=== PATIENT | female | born 1945 | race Caucasian/White ===

== ENCOUNTER 2017-10-18 04:26 | Inpatient (IN) | payer MEDICARE ==
[2017-10-18] MEDS ORDERED: Potassium Chloride 20 MEQ TAB ONE (05:17)
[2017-10-18 05:31] LABS: Lactic Acid - Sepsis 1.1 mmol/L (0.5-2.2)
[2017-10-18 05:35] LABS: CK (CPK) 52 U/L (29-168); Lipase 19 U/L (8-78); Troponin I Less than 0.010 ng/mL (< 0.028)
[2017-10-18] MEDS ORDERED: D5 1/2 NS w/20 mEq KCL 1,000 ML IV SCH ×2 (06:45→09:30)
--- NOTE | 2017-10-18 07:55 | ULT ---
PRELIMINARY REPORT/[facility]/EMERGENCY AFTER HOURS PROCEDURE: EXAM: US Duplex Right Lower Extremity Veins CLINICAL HISTORY: 72 years old, female; Signs and symptoms; Swelling of limb; Lower extremity, right; Additional info: Pt is obese, diagnosed with cellulitis. Rt lower leg red/warm/swollen TECHNIQUE: Real-time ultrasound scan of the veins of the right lower extremity with color Doppler flow, spectral waveform analysis and compression. COMPARISON: No relevant prior studies available. FINDINGS: Deep veins: No acute findings. No DVT in the visualized common femoral, femoral, proximal deep femora l or popliteal veins. The veins demonstrate normal color flow, are normally compressible, with normal phasic flow and/or augmentation response. Superficial veins: No acute findings. No thrombus in the visualized great saphenous vein. Soft tissues: No acute findings. No popliteal cyst. IMPRESSION: Normal right lower extremity duplex venous ultrasound. Thank you for allowing us to participate in the care of your patient. Dictated and Authenticated by: Yazan Maradiaga MD 10/18/2017 5:41 AM Central Time ([place] & [place]) FINAL REPORT VENOUS DOPPLER ULTRASOUND OF THE RIGHT LOWER EXTREMITY: I agree with the preliminary report given by Dr. Yazan Maradiaga of [facility]. POS: [facility]
--- NOTE | 2017-10-18 08:33 | CT ---
PRELIMINARY REPORT/[facility]/EMERGENCY AFTER HOURS PROCEDURE: EXAM: CT Angiography Chest With Intravenous Contrast CLINICAL HISTORY: 72 years old, female; Pain; Chest pain; Type not specified; Patient HX: R/O pe; Additional info: Pt i s obese, diagnosed with cellulitis. Rt lower leg red/warm/swollen TECHNIQUE: Axial computed tomographic angiography images of the chest with intravenous contrast using pulmonary embolism protocol. CONTRAST: 100 mL of ISOVUE administered intravenously. COMPARISON: No relevant prior studies available. FINDINGS: Pulmonary arteries: No acute findings. No pulmonary embolism. Aorta: 4.2 cm ascending thoracic aortic aneurysm without leak or dissection. Lungs: No acute findings. No mass. No consolidation. Pleural space: No acute findings. No significant effusion. No pneumothorax. Heart: Moderate cardiomegaly. No significant pericardial effusion. No evidence of RV dysfunction. Bones/joints: Chronic degenerative spinal changes without acute fracture or dislocation. Soft tissues: No acute findings. Lymph nodes: No acute findings. No enlarged lymph nodes. IMPRESSION: No pulmonary embolism. 4.2 cm ascending thoracic aortic aneurysm without leak or dissection. Moderate cardiomegaly. No mass. No consolidation. Thank you for allowing us to participate in the care of your patient. Dictated and Authenticated by: Yazan Maradiaga MD 10/18/2017 6:08 AM Central Time ([place] & [place]) FINAL REPORT EMERGENCY/AFTER HOURS EXAMINATION CT ANGIO CHEST PERFORMED WITH INTRAVENOUS CONTRAST ENHANCEMENT WITH 3D RECONSTRUCTIONS: HISTORY: Chest pain. FINDINGS: The lungs are clear of any infiltrative process. There are no pulmonary nodules or pleural effusions identified. The ascending thoracic aorta measures approximately 4.1 cm. The descending thoracic aorta is normal in caliber. There is good pulmonary arterial opacification without CT evidence for pulmonary embolus. The visualized liver parenchyma is normal. IMPRESSION: 1. No CT evidence for pulmonary embolus. 2. The ascending aorta measures approximately 4.1 cm in anterior-posterior dimension. This report is in agreement with the temporary report issued by [facility]. POS: [facility]
[2017-10-18] MEDS ORDERED: Ondansetron ODT 4 MG TAB SL PRN (09:24)
[2017-10-18] MEDS ORDERED: Ondansetron HCl/PF 4 MG/2 ML Vial IVP PRN ×2 (09:24→10:47)
[2017-10-18 10:05] VITALS: BMI 41.3
[2017-10-18] MEDS ORDERED: HYDROcodone/Acetaminophen 5/325 mg Tablet PO PRN (10:47)
[2017-10-18] MEDS ORDERED: Nitroglycerin 0.4 MG TAB (25 Tab Bottle) SL PRN (10:47)
[2017-10-18] MEDS ORDERED: Piperacillin/Tazobactam 3.375 GM in Sodium Chloride 0.9% 100 ML IVPB SCH (11:00)
[2017-10-18 11:47] LABS: Troponin I 0.013 ng/mL (< 0.028)
[2017-10-18 11:48] LABS: Anion Gap 10 mmol/L (10-20); Calcium 8.4 mg/dL (7.8-10.44); Carbon Dioxide 25 mmol/L (23-31); Chloride 107 mmol/L (98-107)
[2017-10-18 11:58] LABS: Calc. Creatinine Clearance 100 mL/min (70-130); Estimated GFR-MDRD 66
[2017-10-18] MEDS: Piperacillin/Tazobactam 3.375 GM in Sodium Chloride 0.9% 100 ML IVPB SCH ×2 (11:58→20:07)
[2017-10-18 11:59] LABS: BUN (Urea Nitrogen) 19 mg/dL (9.8-20.1)
--- NOTE | 2017-10-18 12:39 | HP ---
DATE OF ADMISSION: 10/18/2017 PRIMARY CARE PHYSICIAN: Yohana leslie. REASON FOR ADMISSION: Cellulitis, atrial fibrillation. HISTORY OF PRESENT ILLNESS: Ms. Ceci Polk is a 72-year-old female with a history of hypertensio n, questionable atrial fibrillation, who presents to the emergency room after having a fever at home. According to family members, the patient had a fever up to 103.2. They stated that intermittently she became altered. [facility], where she was evaluated. There is suspicion for a DVT in her right lower extremity and was given 1 dose of Lovenox. She was t hen transferred to [place] for higher level of care. The patient states that she has noted erythe ma in her legs for the last 3 months. She cannot say exactly where it began but it has been spreadin g. There is no pain on palpation, it is erythematous and warm. She has not noticed any discharge. She denies any chest pain or shortness of breath. She was given intravenous antibiotics in the emerg ency room and subsequently being admitted to the telemetry floor. The patient states she has had a h istory of atrial fibrillation in the past, but cannot recall any treatment course, cannot recall bein g on any blood thinners or any rate controlling agents. She is currently resting comfortably. PAST MEDICAL HISTORY: 1. Hypertension. 2. Question of atrial fibrillation. PAST SURGICAL HISTORY: Hysterectomy. CODE STATUS: She is FULL CODE. SOCIAL HISTORY: The patient any denies alcohol use, tobacco, or illicit drug use. MEDICATIONS: Aspirin 81 mg p.o. daily. She reports noncompliance with her antihypertensive medicati ons. ALLERGIES: AZITHROMYCIN, CLINDAMYCIN, LEVAQUIN, PREDNISONE, and SULFA. FAMILY HISTORY: Reviewed and noncontributory. REVIEW OF SYSTEM: The following complete review of systems was negative, unless otherwise mentioned in the HPI or below: Constitutional: Weight loss or gain, sense of well-being, ability to conduct usual activities, exerc ise tolerance. Skin/Breast: Rash, itching, changes in hair growth or loss, nail changes, breast lumps, tenderness, swelling, nipple discharge. Eyes: Vision, double vision, tearing, blind spots, pain. ENT/Mouth: Headaches (location, time of onset, duration, precipitating factors), vertigo, lightheade dness, injury. Vision, double vision, tearing, blind spots, pain, nose bleeding, colds, obstruction, discharge, dental difficulties, gingival bleeding, dentures, neck stiffness, pain, tenderness, masses in thyroid or other areas Cardiovascular: Precordial pain, substernal distress, palpitations, syncope, dyspnea on exertion, or thopnea, nocturnal paroxysmal dyspnea, edema, cyanosis, hypertension, heart murmurs, varicosities, ph lebitis, claudication. Respiratory: Pain, shortness of breath, wheezing, stridor, cough, hemoptysis, fever or night sweats Gastrointestinal: Poor appetite, dysphagia, indigestion, abdominal pain, heartburn, eructation, naus ea, vomiting, hematemesis, jaundice, constipation, or diarrhea, abnormal stools (diana-colored, tarry, bloody, greasy, foul smelling), flatulence, hemorrhoids, recent changes in bowel habits. Genitourinary: Urgency, frequency, dysuria, nocturia, hematuria, polyuria, oliguria, unusual (or chantal nge in) color of urine, stones, hesitancy, change in size of stream, dribbling, acute retention or in continence, libido, potency. Musculoskeletal: Pain, swelling, redness or heat of muscles or joints, limitation, of motion, muscul ar weakness, atrophy, cramps. Neurologic/Psychiatric: Convulsions, paralyses, tremor, incoordination, paresthesias, difficulties w ith memory of speech, sensory or motor disturbances, or muscular coordination (ataxia, tremor), emoti onal problems, anxiety, depression, previous psychiatric care, unusual perceptions, hallucinations. Allergy/Immunologic: Skin rash, anemia, bleeding tendency, polydipsia, polyuria, intolerance to heat or cold. PHYSICAL EXAMINATION: VITAL SIGNS: Blood pressure is 167/85, temperature 97.9, pulse is 63, O2 saturation is 97% on 2 lite rs nasal cannula, respirations are 18. GENERAL: She is in no acute distress, nontoxic appearing. HEENT: Eyes, pupils are round and reactive to light and accommodation. No scleral icterus, no pale conjunctivae. ENT/MOUTH: Moist oral mucosa. RESPIRATORY: Equal chest wall expansion. No wheezes, rhonchi, or rales. CARDIOVASCULAR: S1 and S2 present. Irregular rate and rhythm. No murmurs, gallops or rubs. GASTROINTESTINAL: Soft, nontender, nondistended. Bowel sounds present in all 4 quadrants. MUSCULOSKELETAL: Good range of motion in all 4 extremities. No clubbing, no cyanosis. LYMPHATIC: No swollen or painful cervical or axillary lymph nodes. NEUROLOGIC: No ptosis, no facial sensation or jaw protrusion, no focal deficits. PSYCHIATRIC: She is awake, alert to time, place, person, answers questions appropriately. SKIN: She has erythema up into her mid-calf in her right lower extremity. LABORATORY AND X-RAY FINDINGS: [facility] and reviewed by me show WBC of 13.5, hemoglobin 13.8, hematocrit 40.6, and platelet count 239,000. Sodium is 141, potassium 2.8, ch loride is 103, carbon dioxide 24, anion gap 17, BUN 20, creatinine 0.92, glucose 123. AST and ALT 16 and 13. BNP is 541.3. TSH is 0.87. Urine shows 7-10 WBCs, small bilirubin, moderate blood, tropon ins less than 0.01. Ulcer on the right lower extremity reveals a normal right lower extremity venous ultrasound, there is no evidence of DVT. CT of the chest and thorax revealed no CT evidence for pulmonary embolus and the ascending aorta radha uring 4.1 cm in anterior posterior dimension. There is no evidence of dissection or leak. EKG revealed atrial fibrillation at a rate of 77 beats per minute. ASSESSMENT AND PLAN: Ms. Ceci Polk is a 72-year-old female with a history of hypertension and p ossible atrial fibrillation, who presents to the emergency room complaining of fevers. 1. Fever, most likely secondary to underlying cellulitis of her right lower extremity. She will be admitted to the telemetry floor. Blood cultures have been ordered. The patient will be empirically started on vancomycin and Zosyn. We will adjust antibiotic therapy according to blood cultures. 2. Atrial fibrillation. Currently, the patient is rate controlled. However, given her elevated CHANTAL DS2 score, start patient on full dose anticoagulation. We will check an echocardiogram. We will als o consult Cardiology for further recommendations. 3. Hypertension. We will start the patient on hydralazine at this time; however, we will defer to b e on hydrochlorothiazide, but we will need to ensure her potassium within normal limits for doing thi s. 4. Hypokalemia. We will recheck stat and replete accordingly. 5. Cardiac diet. 6. P.r.n. order set. 7. FULL CODE. I have explained all this to the patient and the family at bedside. They are agreeable to the plan o f treatment. All questions have been answered. The patient's further hospital course will be dictat ed by her clinical course while here.
[2017-10-18] MEDS ORDERED: ISOVUE-370 76%-LOCM 1 ML ONE (13:34)
--- NOTE | 2017-10-18 13:48 | CON ---
DATE OF CONSULTATION: 10/18/2017 HISTORY OF PRESENT ILLNESS: The patient is a pleasant 72-year-old woman who was noted to be in irregular heart rhythm and was admitted with a swollen right foot. The patient states previously she has been told she has atrial fibrillation. She also has a history of hypertension. The patient has been noncompliant and has not seen a physician for several years. The patient recently noted that her foot was swollen and erythematous. The patient presented to the emergency room with a markedly swollen right foot, fevers and chills. The patient denied having any palpitations. The patient denies having any chest discomfort. PAST MEDICAL HISTORY: : 1. History of hypertension. 2. History of atrial fibrillation. PAST SURGICAL HISTORY: Hysterectomy and hernia surgery. SOCIAL HISTORY: She is a nonsmoker. ALLERGIES: AZITHROMYCIN, BACTRIM, CLINDAMYCIN, LEVAQUIN, and PREDNISONE. FAMILY HISTORY: No strong family history of heart disease. REVIEW OF SYSTEMS: Ten-point system otherwise unremarkable. No history of easy bruising or bleeding, bright red blood per rectum. PHYSICAL EXAMINAITON: GENERAL: Obese woman, in no acute distress. VITAL SIGNS: Blood pressure was 133/83, heart rate was 70 and irregular. NECK: No jugular venous distention, no carotid bruits. LUNGS: Clear to auscultation. HEART: Irregular rate and rhythm, normal S1, S2, no murmurs. ABDOMEN: Mildly distended. EXTREMITIES: Showed markedly swollen right lower extremities with erythema. NEUROLOGIC: Nonfocal. PSYCHIATRIC: Mood is appropriate. VASCULAR: Radial pulses 2+. LABORATORY DATA AND IMAGING: Sodium 139, potassium 3.2, chloride 107, bicarbonate 25, BUN 19, creatinine 0.85, glucose 124, Troponin was 0.013. TSH is 0.8725. EKG revealed atrial fibrillation with a rate of approximately 70 and a nonspecific T-wave abnormality. IMPRESSION: 1. Atrial fibrillation, rate controlled. 2. Cellulitis. 3. Hypertension. 4. Obesity. 5. Noncompliance. This patient presents with cellulitis. She has rate controlled atrial fibrillation without any medication. From a cardiac standpoint, we will place her on Eliquis. We will check the patient's echocardiogram. We will follow this patient with you throughout her hospitalization. [place]
[2017-10-18] MEDS: Vancomycin HCl 1 GM in Premix Bag 1 BAG IVPB SCH (14:42)
[2017-10-18] MEDS: hydrALAZINE 25 MG TAB PO SCH (20:09)
[2017-10-18] MEDS ORDERED: Enoxaparin Sodium 100 MG/ML SYRINGE SC SCH (21:00)
[2017-10-18] MEDS ORDERED: Vancomycin HCl 1 GM in Premix Bag 1 BAG IVPB SCH (21:00)
[2017-10-19] MEDS: Vancomycin HCl 1 GM in Premix Bag 1 BAG IVPB SCH ×2 (02:51→15:29)
[2017-10-19] MEDS: Piperacillin/Tazobactam 3.375 GM in Sodium Chloride 0.9% 100 ML IVPB SCH ×3 (03:39→18:29)
[2017-10-19 04:58] LABS: Anion Gap 10 mmol/L (10-20); BUN (Urea Nitrogen) 17 mg/dL (9.8-20.1); Calc. Creatinine Clearance 110 mL/min (70-130); Calcium 8.6 mg/dL (7.8-10.44); Carbon Dioxide 23 mmol/L (23-31); Chloride 108 mmol/L (98-107); Estimated GFR-MDRD 74
[2017-10-19] MEDS: hydrALAZINE 20 MG/ML VIAL SLOW IVP PRN ×3 (05:02→23:50)
[2017-10-19 05:03] LABS: #Eosinphils 0.3 thou/uL (0.0-0.7); #Lymphocytes 1.3 thou/uL (1.20-3.40); #Monocytes 0.6 thou/uL (0.11-0.59); #Neutrophils 3.8 thou/uL (1.40-6.50); %Basophils 0.5 % (0.0-1.0); %Lymphocytes 21.4 % (21.0-51.0); %Monocytes 9.4 % (0.0-10.0); Hematocrit 38.3 % (36.0-47.0); Mean Platelet Volume 7.3 fL (7.4-10.4); Red Blood Cell (RBC) Count 3.99 mill/uL (4.20-5.40); White Blood Cell (WBC) Count 5.9 thou/uL (4.8-10.8)
[2017-10-19] MEDS ORDERED: Aspirin 81 mg Enteric Coated Tablet PO SCH (09:00)
[2017-10-19] MEDS ORDERED: VANCOMYCIN IVPB PRN (09:15)
[2017-10-19] MEDS: 1/2 NS w/KCL 20 mEq 1,000 ML IV SCH (10:40)
[2017-10-19] MEDS: Apixaban 5 MG TAB PO SCH ×2 (10:42→20:58)
[2017-10-19] MEDS: hydrALAZINE 25 MG TAB PO SCH ×2 (10:42→20:58)
--- NOTE | 2017-10-19 15:27 | PDOC.PN ---
- Subjective Encounter Start Date: 10/19/17 Encounter Start Time: 15:25 Subjective: feels better.no chest pain/palpitations - Objective Resuscitation Status: Resuscitation Status FULL:Full Resuscitation MAR Reviewed: Yes Vital Signs & Weight: Vital Signs (12 hours) Temp Pulse Resp BP BP Pulse Ox 10/19/17 12:42 76 181/101 H 10/19/17 12:00 98.0 F 76 20 181/101 H 94 L 10/19/17 10:42 81 179/90 H 10/19/17 08:00 98.5 F 81 20 179/90 H 93 L 10/19/17 06:37 179/94 H 10/19/17 05:02 69 196/98 H 10/19/17 04:00 98.5 F 56 L 18 206/104 H 94 L Weight Admit Weight 226 lb Weight 226 lb I&O: 10/18/17 10/19/17 10/20/17 06:59 06:59 06:59 Intake Total 1989 Balance 1989 Result Diagrams: 10/19/17 04:00 10/19/17 04:00 Additional Labs: Microbiology 10/18/17 02:30 Urine voided Urine Culture - Preliminary 10/18/17 02:00 Venous blood - Right Arm Blood Culture - Preliminary Specimen has been received and culture in progress. No Growth to date. 10/18/17 02:00 Venous blood - Right Arm Blood Culture - Preliminary Coagulase Neg Staphylococcus Radiology Reviewed by me: Yes (No DVT or PE) Phys Exam - Physical Examination Constitutional: NAD HEENT: PERRLA, moist MMs, sclera anicteric, oral pharynx no lesions Neck: no nodes, no JVD, supple, full ROM Respiratory: no wheezing, no rales, no rhonchi, clear to auscultation bilateral Cardiovascular: no significant murmur, irregular Gastrointestinal: soft, non-tender, no distention, positive bowel sounds Musculoskeletal: no edema, pulses present mild receeding erythema of R leg w/o tenderness Neurological: non-focal, normal sensation, moves all 4 limbs Psychiatric: normal affect, A&O x 3 Skin: no rash Dx/Plan (1) Cellulitis of leg, right Code(s): L03.115 - CELLULITIS OF RIGHT LOWER LIMB Status: Acute (2) Chronic atrial fibrillation Code(s): I48.2 - CHRONIC ATRIAL FIBRILLATION Status: Chronic (3) HTN (hypertension) Code(s): I10 - ESSENTIAL (PRIMARY) HYPERTENSION Status: Chronic Qualifiers: Hypertension type: essential hypertension Qualified Code(s): I10 - Essential (primary) hypertension (4) Hypokalemia Code(s): E87.6 - HYPOKALEMIA Status: Acute - Plan continue antibiotics, PT/OT, social human services assistants, out of bed/ambulate improving cellulitis.Blood Cx results noted-likely contaminate.follow final -: Change BID lovenox to eliquis per cardiology recs.Pt educated -: BP still high.Increase Hydralazine to TID.Add BB -: hemodynamically stable. connor DC home in next 24 hr if Blood Cx negative -: am labs.replace and recheck potassium * . Review of Systems - Review of Systems Constitutional: weakness, malaise ENT: negative: Ear Pain, Ear Discharge, Nose Pain, Nose Discharge, Nose Congestion, Mouth Pain, Mouth Swelling, Throat Pain, Throat Swelling, Other Respiratory: negative: Cough, Dry, Shortness of Breath, Hemoptysis, SOB with Excertion, Pleuritic Pain, Sputum, Wheezing Cardiovascular: negative: chest pain, palpitations, orthopnea, paroxysmal nocturnal dyspnea, edema, light headedness, other Gastrointestinal: negative: Nausea, Vomiting, Abdominal Pain, Diarrhea, Constipation, Melena, Hematochezia, Other Genitourinary: negative: Dysuria, Frequency, Incontinence, Hematuria, Retention , Other Musculoskeletal: Leg Pain (improved). negative: Neck Pain, Shoulder Pain, Arm Pain, Back Pain, Hand Pain, Foot Pain, Other Neurological: negative: Weakness, Numbness, Incoordination, Change in Speech, Confusion, Seizures, Other - Medications/Allergies Allergies/Adverse Reactions: Allergies Allergy/AdvReac Type Severity Reaction Status Date / Time azithromycin Allergy Verified 10/18/17 06:34 clindamycin Allergy Verified 10/18/17 06:34 levofloxacin [From Levaquin] Allergy Verified 10/18/17 06:34 prednisone Allergy Verified 10/18/17 06:34 Sulfa (Sulfonamide Allergy Verified 10/18/17 06:34 Antibiotics) sulfamethoxazole Allergy Verified 10/18/17 11:01 [From Bactrim] trimethoprim [From Bactrim] Allergy Verified 10/18/17 11:01 Medications: Current Medications Acetaminophen (Tylenol) 650 mg PO Q4H PRN PRN Reason: Headache/Fever or Pain Hydrocodone Bitart/Acetaminophen ([place] 5/325) 1 tab PO Q4H PRN PRN Reason: Moderate Pain (4-6) Apixaban (Eliquis) 5 mg PO BID [facility] Last Admin: 10/19/17 10:42 Dose: 5 mg Aspirin (Ecotrin) 81 mg PO DAILY [facility] Last Admin: 10/19/17 10:42 Dose: 81 mg Hydralazine HCl (Apresoline) 25 mg PO BID [facility] Last Admin: 10/19/17 10:42 Dose: 25 mg Hydralazine HCl (Apresoline) 10 mg SLOW IVP Q4H PRN PRN Reason: FOR SBP > 180 Last Admin: 10/19/17 12:42 Dose: 10 mg Vancomycin HCl 1 gm/ Device 200 mls @ 200 mls/hr IVPB 0200,1400 [facility] Last Admin: 10/19/17 02:51 Dose: 200 mls Piperacillin Sod/Tazobactam (Sod 3.375 gm/ Sodium Chloride) 100 mls @ 200 mls/ hr IVPB 0300,1100,1900 [facility] Last Admin: 10/19/17 10:43 Dose: 100 mls Potassium Chloride/Sodium Chloride (1/2 Ns W/Kcl 20 Meq) 1,000 mls @ 75 mls/hr IV .[id number] [facility] Last Admin: 10/19/17 10:40 Dose: 1,000 mls Miscellaneous Medication (Pharmacy To Dose) 0 each IVPB DAILYPRN PRN PRN Reason: LABS Nitroglycerin (Nitrostat) 0.4 mg SL Q5MIN PRN PRN Reason: Chest Pain Ondansetron HCl (Zofran) 4 mg IVP Q6H PRN PRN Reason: Nausea/Vomiting
[2017-10-19] MEDS ORDERED: Metoprolol Tartrate 25 MG TAB PO SCH (21:00)
[2017-10-20] MEDS: Acetaminophen 325 MG TAB PO PRN ×2 (01:04→10:03)
[2017-10-20] MEDS: 1/2 NS w/KCL 20 mEq 1,000 ML IV SCH (01:04)
[2017-10-20] MEDS: Vancomycin HCl 1 GM in Premix Bag 1 BAG IVPB SCH ×2 (01:04→14:58)
[2017-10-20] MEDS: Piperacillin/Tazobactam 3.375 GM in Sodium Chloride 0.9% 100 ML IVPB SCH ×2 (03:29→10:03)
[2017-10-20 05:47] LABS: Anion Gap 12 mmol/L (10-20); BUN (Urea Nitrogen) 10 mg/dL (9.8-20.1); Calc. Creatinine Clearance 134 mL/min (70-130); Calcium 9.1 mg/dL (7.8-10.44); Carbon Dioxide 24 mmol/L (23-31); Chloride 105 mmol/L (98-107); Estimated GFR-MDRD 78
[2017-10-20] MEDS ORDERED: Metoprolol Tartrate 25 MG TAB PO SCH (07:37)
[2017-10-20] MEDS ORDERED: cloNIDine 0.1 MG TAB PO PRN (07:37)
[2017-10-20] MEDS ORDERED: Potassium Chloride 20 MEQ TAB PO SCH (08:00)
[2017-10-20] MEDS: Apixaban 5 MG TAB PO SCH (10:02)
[2017-10-20] MEDS: hydrALAZINE 25 MG TAB PO SCH ×2 (10:02→14:58)
[2017-10-20 11:57] VITALS: BP 172/89; TEMP 98.2
--- NOTE | 2017-10-20 21:53 | DIS ---
DATE OF ADMISSION: 10/18/2017 DATE OF DISCHARGE: 10/20/2017 CONDITION AT THE TIME OF DISCHARGE: Stable and improved. PRIMARY CARE PHYSICIAN: None. FOLLOWUP: The patient will follow up with primary care physician in [place] to establish care. DISCHARGE DIAGNOSES: 1. Chronic atrial fibrillation without treatment. The patient was started on anticoagulation. 2. Right lower extremity cellulitis. 3. Hypertension. 4. Hypokalemia. DISCHARGE MEDICATIONS: Hydralazine 25 mg p.o. t.i.d., metoprolol tartrate 25 mg p.o. b.i.d., Keflex 500 mg p.o. b.i.d. for 7 more days, Florastor 250 mg p.o. daily for 10 days, and Eliquis 5 mg p.o. b. i.d. CONSULTATIONS: Inhouse include Cardiology, Dr. Nicholas Branch. PROCEDURES IN THE HOSPITAL: 1. CT angio of the thorax, which is negative for any pulmonary embolism. 2. Ultrasound of the right lower extremity, which is negative for any DVT. HISTORY OF PRESENTING ILLNESS: Ms. Polk is a very pleasant 72-year-old female with past medical history of hypertension and chronic atrial fibrillation without any medical care for years, who presented to the emergency room with complaints of fever, swelling, and pain of the right lower e xtremity. She had noticed erythema in the legs for the last 3 months, but recently started to have f ever. Initially, she was given IV antibiotics in the ER along with one dose of Lovenox as a suspicio n of DVT was high. She eventually underwent a lower extremity ultrasound which was negative for DVT as well as a CT angio of the thorax which was negative for PE in the ER. She was found to have atria l fibrillation at the rate of 77 beats per minute in the ER on the EKG. She was admitted with a pres umptive diagnosis of right lower extremity cellulitis and chronic atrial fibrillation. She was other [place] hemodynamically stable. Her potassium was low at 2.8 upon presentation and BNP was 541. Please see admission history and physical for further details. Cardiology was consulted with regards to he r chronic atrial fibrillation and she was started on therapeutic anticoagulation with b.i.d. dosing o f subcutaneous Lovenox. HOSPITAL COURSE: Ms. Polk continued on IV antibiotics and cultures were followed. One out of two blood cultures grew coags negative Staph, otherwise unremarkable. Urine cultures were negative. He r symptoms significantly improve with receding erythema, pain and tenderness on the right lower extre mity. She was found to have uncontrolled hypertension and was started on hydralazine and later metoprolol w as added with up titration of the medications for better blood pressure control, which really helped. Dr. Branch saw her from the Cardiology Department with regards to chronic atrial fibrillation and r ecommended starting her on Eliquis 5 mg p.o. b.i.d. for secondary stroke prevention and outpatient fo llowup. An echocardiogram was ordered, but unfortunately it was not read prior to discharge. The trey pitts was instructed to follow with Dr. Branch as an outpatient with the results and also for the f ollowup of chronic atrial fibrillation and new anticoagulation status. She understood discharge plan . On the day of discharge, she was seen and examined and is hemodynamically stable. PHYSICAL EXAMINATION: Include, VITAL SIGNS: Temperature 98.2, pulse of 70, respirations 18, saturating 96% on room air, and blood p ressure 171/81. GENERAL: No acute distress. CHEST: Clear to auscultation. Rate and rhythm is irregular without any tachycardia, right lower ext remity erythema and swelling, and edema has significantly improved. No tenderness to palpation. LABORATORY EXAMINATION: Potassium is 3.1 along with normal magnesium of 1.9. This was supplemented prior to discharge. Her urine culture is negative and blood culture 1 of 2 shows coag negative staph . She is instructed to make appointment and follow up with the primary care physician for blood pressur e management and is encouraged to keep a blood pressure log as well. She verbalized understanding. Total time spent 32 minutes.
== END 2017-10-20 15:38 | disposition home or self-care (01) | DRG 603 ==
LOC: ERS 04:26 → ERHOLD 05:24 → 2SE 09:32
PROVIDERS: ADMIT Internal Medicine; ATTEND Internal Medicine
DX: L03.115 Cellulitis of right lower limb (principal); I48.2 Chronic atrial fibrillation; Z68.41 Body mass index [BMI] 40.0-44.9, adult; Z79.01 Long term (current) use of anticoagulants; I10 Essential (primary) hypertension; R09.02 Hypoxemia; E87.6 Hypokalemia; Z91.14 Patient's other noncompliance with medication regimen; E66.9 Obesity, unspecified
CPT/HCPCS: 36415; 71275; 80048; 80202; 82553; 83605; 83690; 83735; 83880; 84443; 84484; 85025; 93005; 93306; 94760; 96360; 96361; J0360; J1650; J2543; J3370; J7050